=== PATIENT | female | born 1990 | race Caucasian/White ===

== ENCOUNTER 2016-10-24 18:33 | Emergency (ER) | payer OTHER ==
[~2016-10-24] VITALS: Ht 154.9 cm; Wt 57.7 kg
[~2016-10-24 18:33] MED LIST: CATAPRES0.1 MG PO; LIBRIUM25 MG PO; THIAMINE HCL100 MG PO; TRAZODONE HCL50 MG PO
[2016-10-24] MEDS ORDERED: SERTRALINE HCL25 MG PO (18:43)
[2016-10-24 19:09] LABS: HEMATOCRIT 39.5 % (36.0-46.0); MCH 29.9 PG (29.0-34.0); MCHC 32.9 G/DL (30.0-36.0); MCV 90.8 FL (83-99); MEAN PLAT.VOLUME 10.5 uM^3 (9.5-12.4); PLATELET COUNT 190 K/uL (156-360); RBC DIS.WIDTH-CV 13.9 % (11.8-14.6); RBC DIS.WIDTH-SD 46.7 % (39-53); RED BLOOD COUNT 4.35 M/uL (3.80-5.20); WHITE BLOOD COUNT 8.9 K/uL (4.1-10.2)
[2016-10-24 19:18] LABS: CHLORIDE 102 mEq/L (99-109); POTASSIUM 3.9 mEq/L (3.7-5.4); SODIUM 137 mEq/L (136-147)
[2016-10-24 19:20] LABS: GLUCOSE 108 mg/dL (70-99)
[2016-10-24 19:21] LABS: ANION GAP 9 MEQ/L (2-14)
[2016-10-24 19:22] LABS: TOTAL BILIRUBIN 0.4 mg/dL (0.0-1.0)
[2016-10-24 19:23] LABS: ALKALINE PHOSPHATASE 68 IU/L (3-129)
[2016-10-24 19:24] LABS: GFR ESTIMATE (CALCULATED) > 59 mL/min/
[2016-10-24 19:25] LABS: UREA NITROGEN (BUN) 10 mg/dL (9-23)
[2016-10-24 19:27] LABS: LIPASE 42 U/L (1.0-51.0)
[2016-10-24 19:33] LABS: QUANTITATIVE HCG < 4.0 MIU/ML
[2016-10-24] MEDS ORDERED: MEDROL DOSEPAK4 MG PO (20:30)
[2016-10-24] MEDS ORDERED: NAPROXEN500 MG PO (20:30)
[2016-10-24] MEDS ORDERED: MOTRIN600 MG PO (20:49)
[2016-10-24 20:57] VITALS: BP 123/71
== END 2016-10-24 20:58 | disposition home or self-care (01) ==
LOC: EXP 18:33 → EME 18:33 → EXP 20:58
PROVIDERS: Physician Assistant
DX: R10.11 Right upper quadrant pain (principal); F17.200 Nicotine dependence, unspecified, uncomplicated
CPT/HCPCS: 71020; 76705; 80053; 81003; 83690; 84702; 85027; 99281; 99283

== ENCOUNTER 2017-10-07 03:46 | Emergency (ER) | payer OTHER ==
[~2017-10-07] VITALS: Ht 154.9 cm; Wt 65.7 kg
[~2017-10-07 03:46] MED LIST changes: +MEDROL DOSEPAK4 MG PO; +MOTRIN600 MG PO; +NAPROXEN500 MG PO; +SERTRALINE HCL25 MG PO
[2017-10-07 04:59] LABS: BASOPHIL (%) 0.2 % (0-1); EOSINOPHIL (%) 2.9 % (0-5); EOSINOPHIL COUNT 0.2 K/uL (0-0.3); HEMATOCRIT 33.5 % (36.0-46.0); HEMOGLOBIN 11.4 G/DL (11.9-15.5); IMMATURE GRANULOCYTE (%) 0.3 % (0.0-0.7); MCH 29.2 PG (29.0-34.0); MCV 85.7 FL (83-99); MONOCYTE (%) 7.8 % (3-12); MONOCYTE COUNT 0.5 K/uL (0-0.8); NEUTROPHIL (%) 55.8 % (45-76); NEUTROPHIL COUNT 3.4 K/uL (1.8-6.4); PLATELET COUNT 201 K/uL (156-360); RBC DIS.WIDTH-SD 39.9 % (39-53); RED BLOOD COUNT 3.91 M/uL (3.80-5.20); WHITE BLOOD COUNT 6.1 K/uL (4.1-10.2)
[2017-10-07 05:08] LABS: CHLORIDE 103 mEq/L (99-109); POTASSIUM 3.5 mEq/L (3.7-5.4); SODIUM 140 mEq/L (136-147)
[2017-10-07 05:09] LABS: GLUCOSE 105 mg/dL (70-99)
[2017-10-07 05:13] LABS: CREATININE 0.8 mg/dL (0.6-1.3); GFR ESTIMATE (CALCULATED) > 59 mL/min/
[2017-10-07 05:14] LABS: UREA NITROGEN (BUN) 6 mg/dL (9-23)
[2017-10-07] MEDS ORDERED: BACTRIM,SEPT1 TABLET PO (06:23)
[2017-10-07 08:26] VITALS: BP 115/73
== END 2017-10-07 08:46 | disposition home or self-care (01) ==
LOC: EME 03:46
PROVIDERS: Physician Assistant
DX: L03.115 Cellulitis of right lower limb (principal); L03.116 Cellulitis of left lower limb; R60.0 Localized edema; Z16.11 Resistance to penicillins; F32.9 Major depressive disorder, single episode, unspecified; F41.9 Anxiety disorder, unspecified; F17.200 Nicotine dependence, unspecified, uncomplicated
CPT/HCPCS: 73701; 80048; 83605; 85025; 87040; 87070; 87075; 87077; 87147; 87186; 87205; 99281; 99284; J1885; J3370; J7030